=== PATIENT | male | born 1995 | race Caucasian/White ===

== ENCOUNTER → 2023-12-30 | Outpatient (CLI) | payer OTHER, SELFPAY | END | disposition home or self-care (01) | LOC: PSN 10:18 | PROVIDERS: PCP Family Medicine; Referring Provider Internal Medicine Cardiovascular Disease; Visit Provider Internal Medicine Cardiovascular Disease | DX: R00.1 Bradycardia, unspecified (principal) | CPT/HCPCS: 93225; 93226 ==

== ENCOUNTER → 2023-12-31 | Outpatient (CLI) | payer OTHER, SELFPAY ==
--- NOTE | 2023-12-31 12:55 | ECHOD_ITS ---
Reason For Study: Bradycardia Procedure This was a 2D Doppler, Color Flow transthoracic echocardiogram. Exam performed in department. Left Ventricle Normal LV size. Left ventricular systolic function is normal. The left ventricular ejection fraction is 65 %. No regional wall motion abnormalities noted. Right Ventricle Normal RV size. Normal systolic function. Atria Normal left atrium. Normal right atrium. Intact atrial septum. Mitral Valve Anterior leaflet mitral valve prolapse. Tricuspid Valve Normal tricuspid valve. Aortic Valve Trisinus/trileaflet aortic valve. Pulmonic Valve Normal pulmonic valve. Great Vessels Normal aortic root. The pulmonary artery is normal size. Normal inferior vena cava. Pericardium/Pleural No pericardial effusion. Medication 22 gauge I.V. with prn adaptor inserted into right arm. Performed a rapid injection of agitated mix of 9 cc saline and 1cc air to assess for atrial septal defect. MMode/2D Measurements & Calculations LVIDd: 5.0 cm IVSd: 0.94 cm LVOT diam: 2.3 cm LVIDs: 3.7 cm LVPWd: 0.77 cm RVDd: 4.3 cm FS: 25.4 % LVOT area: 4.1 cm2 Ao root diam: 3.2 cm LAV(MOD-bp): 35.6 ml LVAd ap4: 33.5 cm2 LA dimension: 3.0 cm LAV(MOD-bp) Indexed: 17.9 ml/m2 LVLd ap4: 8.8 cm LAV(MOD-sp2): 35.8 ml EDV(MOD-sp4): 104.5 ml LAV(MOD-sp4): 34.8 ml EDV(sp4-el): 107.5 ml LVAs ap4: 17.7 cm2 LVLs ap4: 6.9 cm ESV(MOD-sp4): 37.7 ml ESV(sp4-el): 38.3 ml EF(MOD-sp4): 63.9 % EF(sp4-el): 64.4 % SV(MOD-sp4): 66.8 ml SV(sp4-el): 69.2 ml LA A4 area: 14.9 cm2 RA A4 area: 12.8 cm2 Time Measurements MV dec time: 0.19 sec Doppler Measurements & Calculations MV E max josh: 89.5 cm/sec Lat Peak E' Josh: 19.1 cm/sec Med Peak E' Josh: 11.1 cm/sec MV A max josh: 48.2 cm/sec E/E' lat: 4.7 E/E' med: 8.0 MV E/A: 1.9 MV V2 max: 106.6 cm/sec MV P1/2t max josh: 106.6 cm/sec Ao V2 max: 130.1 cm/sec MV max P.5 mmHg MV P1/2t: 72.9 msec Ao max P.8 mmHg MV V2 mean: 56.4 cm/sec MV dec slope: 428.3 cm/sec2 Ao V2 mean: 87.4 cm/sec MV mean P.5 mmHg MVA(P1/2t): 3.0 cm2 Ao mean P.5 mmHg MV V2 VTI: 36.8 cm Ao V2 VTI: 26.3 cm MVA(VTI): 2.8 cm2 AV (velocity ratio): 0.95 NANI(I,D): 3.9 cm2 NANI(V,D): 3.4 cm2 LV V1 max: 108.0 cm/sec SV(LVOT): 101.5 ml PA V2 max: 106.4 cm/sec LV V1 max P.7 mmHg PA max PG (full): 1.3 mmHg LV V1 mean P.4 mmHg LV V1 mean: 71.4 cm/sec LV V1 VTI: 25.0 cm PI end-d josh: 100.2 cm/sec TR max josh: 205.4 cm/sec TR max P.9 mmHg ECHO/Echo Complete Interpretation Summary Normal LV size. Left ventricular systolic function is normal. The left ventricular ejection fraction is 65 %. Anterior leaflet mitral valve prolapse. Intact atrial septum Ordering Physician: Hai Bearden Referring Physician: Hai Bearden Performed By: Farhan Stuart and Student
== END | disposition home or self-care (01) ==
LOC: CVS 12:46
PROVIDERS: PCP Family Medicine; Referring Provider Internal Medicine Cardiovascular Disease; Visit Provider Internal Medicine Cardiovascular Disease
DX: R00.1 Bradycardia, unspecified (principal); I34.1 Nonrheumatic mitral (valve) prolapse
CPT/HCPCS: 93306; A4216